=== PATIENT | female | born 1970 | race Caucasian/White ===

== ENCOUNTER 2017-02-25 21:20 | Emergency (ER) | payer BC ==
[~2017-02-25] VITALS: Ht 160 cm; Wt 87.5 kg
[2017-02-25 21:23] VITALS: TEMP 37.4; Ht 160 cm; Wt 87.5 kg
[2017-02-25] MEDS ORDERED: ONDANSETRON INJ 2 MG/ML 2 ML VIAL IV STA (22:15)
[2017-02-25] MEDS ORDERED: MoRPHine SULFATE 10 MG/ML CARP/VIAL IV STA (22:15)
[2017-02-25] MEDS ORDERED: SODIUM CHLORIDE 0.9% 1000ML 1,000 ML IV STA (22:15)
[2017-02-25] MEDS ORDERED: FLUT0.15 NAE (22:20)
[2017-02-25] MEDS ORDERED: NAPR1TAB9 PO (22:20)
[2017-02-25] MEDS ORDERED: ONDA4TAB46 SL (22:20)
[2017-02-25] MEDS ORDERED: OXYCODONE PO (22:20)
[2017-02-25 22:25] LABS: MANUAL MICROSCOPIC REQUIRED? NO; REVIEW REQ? NO; URINE APPEARANCE CLEAR (CLEAR); URINE BILIRUBIN NEG (NEG); URINE COLOR YELLOW; URINE NITRITE NEG (NEG); URINE SPECIFIC GRAVITY 1.009 (1.000-1.030); UROBILINOGEN NEG (NEG); ZZUR CULT IF INDIC CLEAN CATCH NO
[2017-02-25 22:48] LABS: BASO % 0.4 %; BASO ABS # 0.05 K/uL (0-0.2); COMPLETE YES; EOS % 2.5 %; HEMATOCRIT 39.9 % (37-47); IG% 0.4 %; LYMPH % 9.9 %; MEAN CELL VOLUME 87.5 fL (80-100); MEAN CORPUSCULAR HEMOGLOBIN 28.7 pg (25-34); MEAN CORPUSCULAR HGB CONC 32.8 g/dl (32-36); MEAN PLATELET VOLUME 11.2 fL (7.4-10.4); MONO % 8.9 %; NEUT % 77.9 %; PLATELET COUNT 264 K/uL (130-400); RED BLOOD COUNT 4.56 M/uL (4.2-5.4)
[2017-02-25 23:05] LABS: ALT/SGPT 37 U/L (12-78); BLOOD UREA NITROGEN 7 mg/dl (7-18); BUN/CREATININE RATIO 11.3 (10-20); CALCIUM 8.5 mg/dl (8.5-10.1); CARBON DIOXIDE 25 mmol/L (21-32); CHLORIDE 105 mmol/L (98-107); CREATININE 0.64 mg/dl (0.60-1.20); GLUCOSE 94 mg/dl (70-99); POTASSIUM 3.6 mmol/L (3.5-5.1); SODIUM 139 mmol/L (136-145)
[2017-02-25 23:08] LABS: ALKALINE PHOSPHATASE 81 U/L (45-117); AST/SGOT 26 U/L (15-37)
[2017-02-25] MEDS ORDERED: OPTIRAY 320 IV PRN (23:45)
--- NOTE | 2017-02-26 01:14 | EMERGENCY ROOM VISIT NOTE ---
History First contact with patient: 21:32 Chief Complaint: ABDOMINAL PAIN Stated Complaint: SHARP PAIN IN L SIDE,CYSTS,ON L OVARY,NAUSEA,FEVER Nursing Triage Summary: Pt states she has been experiencing left lower abdominal pain. Recently had an ultrasound that showed an ovarian cyst. To see an MD or a surgical consult. History of Present Illness The patient is a 47 year old female who presents to the Emergency Room with complaints of left lower quadrant abdominal pain. The patient states that in May of last year, she develops diverticulitis. She states that on the CT scan, there were also ovarian cysts. She followed up with her primary care provider. She has been on a few more courses of antibiotics for presumed diverticulitis, but has had no further imaging studies. Most recently, she was on ciprofloxacin and Flagyl in January for symptoms. After completing the antibiotics, she had continued pain. She was seen at her primary care provider' s office and had a pelvic ultrasound which showed bilateral endometriomas. She was scheduled with [facility] SENIOR APPLICATIONS ARCHITECT but does not have an appointment until later this month. She states that today, she has been nauseous and has had a low-grade fever. She has been taking Zofran at home and left over oxycodone for her pain. She states the pain is cramping and rates the discomfort a 7/10. She states that her periods have been sporadic for the past few years. She denies urinary symptoms, vomiting or changes in bowel movements. Review of Systems A complete 10 point review of systems was reviewed with the patient with pertinent positives and negatives as per history of present illness. All else were negative. Social History Smoking Status: Never Smoker Drug Use: none Marital Status: Housing Status: lives with family Current/Historical Medications Scheduled Naproxen (Aleve), 440 MG PO PRN UD [Oxycodone], 1 TAB PO PRN UD Scheduled PRN Fluticasone Propionate (Nasal) (Flonase Allergy Relief), 2 SPRAYS JAX DAILY PRN for Nasal Congestion Hydrocodone/Acetaminophen 5MG/325MG (Nilwood 5MG/325MG), 1-2 TABLET PO Q4H PRN for Pain Ondansetron Hcl (Zofran), 4 MG SL Q8 PRN for Nausea Allergies Coded Allergies: Amoxicillin (Verified Allergy, Intermediate, GI upset, 06/13/16) Sulfamethoxazole w/Trimethoprim (Verified Allergy, Intermediate, Redness, rash, 06/13/16) Physical Exam Vital Signs Date Time Temp Pulse Resp B/P (MAP) Pulse Ox O2 Delivery O2 Flow Rate FiO2 02/26/17 03:29 72 16 98/56 97 Room Air 02/26/17 01:32 76 18 115/67 96 Room Air 02/25/17 23:12 86 18 128/86 96 Room Air 02/25/17 21:23 37.4 112 20 162/97 96 Room Air Physical Exam VITALS: Vitals are noted on the nurse's note and reviewed by myself. Vital signs stable. GENERAL: This is a 47-year-old female, in no acute distress, nondiaphoretic, well-developed well-nourished. HEART: Regular rate and rhythm without murmurs gallops or rubs. LUNGS: Clear to auscultation bilaterally without wheezes, rales or rhonchi. ABDOMEN: Positive bowel sounds x 4. Soft, mild tenderness of the left lower quadrant. No guarding or rebound tenderness. NEURO: Patient was alert and oriented to person place and time. Medical Decision & Procedures ER Provider Diagnostic Interpretation: CT ABDOMEN & PELVIS: Hypodense complex structure in the left ovary measures approximately 4.6 x 5.5 cm. Hypodense complex structures in the left ovary measure approximately 4.3 x 4.5 cm and 1.5 x 1.8 cm. The structures likely represent hemorrhagic ovarian cyst versus endometriomas which have slightly increased compared to prior exam on . Small amount of free fluid in the pelvis. Minimal atelectasis at left greater than right lung bases. Diverticulosis without evidence of diverticulitis. Normal appendix. Radiologist: Bety Moya MD US PELVIC/ENDOVAG: Left ovary is enlarged measuring 5.2 x 3.9 x 5.8 second liter. The left ovary has normal color flow with normal arterial Doppler waveforms. There is a complex hypoechoic structure measuring 4.8 x 4.0 x 5.8 cm. On the prior study there was a mostly anechoic structure measuring 3.7 x 4.7 x 3.3 cm. A smaller hypoechoic structure is in left ovary measuring 1.6 x 1.1 x 1.7 cm. The ovarian structures do not demonstrate associated color Doppler flow. Findings may represent endometriomas versus hemorrhagic cyst. The right ovary measures 5.3 x 4.0 x 5.8 cm. There are multiple structures without internal vascularity with the largest measuring 3.5 x 3.1 x 3.2 cm. There is also a simple appearing cyst seen with the right ovary measuring 3.4 x 2.5 x 4.6 and later as well as a probable corpeus luteum. The right ovary demonstrates normal color flow with normal arterial Doppler waveforms. Compared to the prior study, the right ovary has become enlarged and there are more enlarge or masses associated with the right ovary. The complex structures may represent hemorrhagic cyst or endometrioma is. The uterus is retroflexed. There is a small intramural fibroid on the right measuring 3.1 x 1.3 x 2.0 cm. Endometrium measures 9 mm. Small amount of free fluid within the pelvis on the right side. Radiologist: Bety Moya MD Laboratory Results 02/25/17 22:15 Red Blood Count 4.56, Mean Corpuscular Volume 87.5, Mean Corpuscular Hemoglobin 28.7, Mean Corpuscular Hemoglobin Concent 32.8, Mean Platelet Volume 11.2, Neutrophils (%) (Auto) 77.9, Lymphocytes (%) (Auto) 9.9, Monocytes (%) (Auto) 8.9, Eosinophils (%) (Auto) 2.5, Basophils (%) (Auto) 0.4, Neutrophils # (Auto) 10.20, Lymphocytes # (Auto) 1.30, Monocytes # (Auto) 1.17, Eosinophils # (Auto) 0.33, Basophils # (Auto) 0.05 02/25/17 22:15 Test 02/25/17 22:00 02/25/17 22:15 Urine Color YELLOW Urine Appearance CLEAR (CLEAR) Urine pH 6.0 (4.5-7.5) Urine Specific [place] 1.009 (1.000-1.030) Urine Protein NEG (NEG) Urine Glucose (UA) NEG (NEG) Urine Ketones NEG (NEG) Urine Occult Blood 3+ (NEG) Urine Nitrite NEG (NEG) Urine Bilirubin NEG (NEG) Urine Urobilinogen NEG (NEG) Urine Leukocyte Esterase MODERATE (NEG) Urine WBC (Auto) 1-5 /hpf (0-5) Urine RBC (Auto) >30 /hpf (0-4) Urine Hyaline Casts (Auto) 1-5 /lpf (0-5) Urine Epithelial Cells (Auto) 10-20 /lpf (0-5) Urine Bacteria (Auto) NEG (NEG) Urine Test NEG (NEG) White Blood Count 13.10 K/uL (4.8-10.8) Red Blood Count 4.56 M/uL (4.2-5.4) Hemoglobin 13.1 g/dL (12.0-16.0) Hematocrit 39.9 % (37-47) Mean Corpuscular Volume 87.5 fL (80-100) Mean Corpuscular Hemoglobin 28.7 pg (25-34) Mean Corpuscular Hemoglobin Concent 32.8 g/dl (32-36) Platelet Count 264 K/uL (130-400) Mean Platelet Volume 11.2 fL (7.4-10.4) Neutrophils (%) (Auto) 77.9 % Lymphocytes (%) (Auto) 9.9 % Monocytes (%) (Auto) 8.9 % Eosinophils (%) (Auto) 2.5 % Basophils (%) (Auto) 0.4 % Neutrophils # (Auto) 10.20 K/uL (1.4-6.5) Lymphocytes # (Auto) 1.30 K/uL (1.2-3.4) Monocytes # (Auto) 1.17 K/uL (0.11-0.59) Eosinophils # (Auto) 0.33 K/uL (0-0.5) Basophils # (Auto) 0.05 K/uL (0-0.2) RDW Standard Deviation 43.9 fL (36.4-46.3) RDW Coefficient of Variation 13.7 % (11.5-14.5) Immature Granulocyte % (Auto) 0.4 % Immature Granulocyte # (Auto) 0.05 K/uL (0.00-0.02) Anion Gap 9.0 mmol/L (3-11) Est Creatinine Clear Calc Drug Dose 116.4 ml/min Estimated GFR () 124.9 Estimated GFR (Non- 107.8 BUN/Creatinine Ratio 11.3 (10-20) Calcium Level 8.5 mg/dl (8.5-10.1) Total Bilirubin 0.3 mg/dl (0.2-1) Direct Bilirubin < 0.1 mg/dl (0-0.2) Aspartate Amino Transf (AST/SGOT) 26 U/L (15-37) Alanine Aminotransferase (ALT/SGPT) 37 U/L (12-78) Alkaline Phosphatase 81 U/L (45-117) Total Protein 7.1 gm/dl (6.4-8.2) Albumin 3.6 gm/dl (3.4-5.0) Lipase 99 U/L (73-393) Medications Administered Medications (Trade) Dose Ordered Sig/Shivani Route Start Time Stop Time Status Last Admin Dose Admin Sodium Chloride 1,000 ml @ 999 mls/hr Q1H1M STAT IV 02/25/17 22:15 02/25/17 23:15 DC 02/25/17 22:32 999 MLS/HR Ondansetron HCl (Zofran Inj) 4 mg NOW STAT IV 02/25/17 22:15 02/25/17 22:16 DC 02/25/17 22:32 4 MG Morphine Sulfate (MoRPHine SULFATE INJ) 6 mg NOW STAT IV 02/25/17 22:15 02/25/17 22:16 DC 02/25/17 22:32 6 MG Ketorolac Tromethamine (Toradol Inj) 30 mg NOW STAT IV 02/26/17 01:42 02/26/17 01:43 DC 02/26/17 01:53 30 MG Morphine Sulfate (MoRPHine SULFATE INJ) 4 mg NOW STAT IV 02/26/17 01:42 02/26/17 01:43 DC 02/26/17 01:53 4 MG Acetaminophen/ Hydrocodone Bitart (Nilwood 5/325mg Home Pack) 1 homepack UD ONCE PO 02/26/17 03:30 02/26/17 03:32 DC 02/26/17 03:29 1 HOMEPACK ED Course The patient was evaluated as above. Labs were drawn and IV access was obtained. Patient was medicated with 1 L normal saline solution, 4 mg Zofran and 6 mg morphine IV. Imaging studies were performed and read by stat rad as above. Patient was reevaluated and had continued pain. She was given 30 mg Toradol IV and an additional 4 mg morphine IV. Patient was reevaluated and felt much better. Findings were discussed. The patient was discussed with case management. They will call SENIOR APPLICATIONS ARCHITECT tomorrow to attempt to make an earlier appointment for the patient. Discharge instructions were reviewed with the patient. The patient verbalized understanding of my assessment and treatment plan and was discharged home in good condition. Medical Decision Differential diagnosis includes ovarian cyst, ovarian torsion, urinary tract infection, diverticulitis, perforation, abscess, among others. The patient is a 47-year-old female who presents today complaining of persistent pelvic/left lower quadrant pain. Patient did have a bout of diverticulitis late last year and has been treated multiple times for recurrent symptoms. Additionally, the patient is scheduled to follow-up with SENIOR APPLICATIONS ARCHITECT regarding bilateral ovarian cyst/endometriomas. The patient has had persistent pain and has not had much relief at home. For this reason, both CT and ultrasound were ordered and read by stat rad. These did not show any evidence of diverticulitis, but did show enlarging ovarian cyst/endometriosis. Blood flow is seen to both ovaries and I do not suspect torsion. Labs were unremarkable. Patient will be given pain medication and case management will attempt to make her an earlier appointment with SENIOR APPLICATIONS ARCHITECT. Conservative measures were discussed with the patient. I had a lengthy discussion regarding the findings today and the treatment plan. She verbalized understanding. Based on the patient's presentation and work up, I feel the patient is stable for outpatient treatment. The patient was educated to return to the emergency department for any worsening of their current condition or new/concerning symptoms. She will follow up with her PCP and SENIOR APPLICATIONS ARCHITECT. Medication reconciliation: I attest that I have personally reviewed the patient 's current medication list. Blood pressure screening: Patient was found to have normal blood pressure on screening and does not require follow-up. [place] Drug Monitoring Program Search Results: patient reviewed within database, no issues identified Impression Primary Impression: Bilateral ovarian cysts Departure Information Dispostion Home / Self-Care Condition GOOD Prescriptions Hydrocodone/Acetaminophen 5MG/325MG (Nilwood 5MG/325MG) Tab 1-2 TABLET PO Q4H Y for Pain, #15 TAB For Initial Treatment Prov: Yaquelin Iniguez .STALIN 02/26/17 Referrals Diana Ayala D.O. (PCP) Patient Instructions My [facility] Additional Instructions You have been treated in the Emergency Department your Abdominal Pain. Laboratory results and imaging studies have ruled out any emergent causes for your abdominal pain which would warrant admission or surgery. You have been prescribed Nilwood to be used for pain control. This is a narcotic medication. You cannot drive or consume alcohol while on this medicine. This medicine should only be used for pain that cannot be controlled with over-the- counter pain medicines. For pain control, you can use the following riax-igz-pdkojli medicines (if >12 yo): - Regular strength (325mg/tab) Tylenol (acetaminophen) 2 tabs every 4-6 hours as needed. Do not exceed 12 tablets in a 24 hour period. Avoid taking more than 4 grams (4000 mg) of Tylenol per day. This includes any other sources of acetaminophen you may take on a regular basis. - Regular strength (200 mg/tab) Advil (ibuprofen) 1-2 tabs every 4-6 hours as needed. Do not exceed a dose of 3200 mg per day. Drink plenty of water and stay well hydrated. Case management will call you tomorrow regarding a follow-up appointment with OB /CASH MANAGEMENT CLERK. Return to the emergency department if your symptoms persist despite treatment plan outlined above or if the following symptoms occur: Fevers, vomiting, worsening pain or any other new/concerning symptoms.
[2017-02-26] MEDS ORDERED: KETOROLAC TROMETHAMINE 30 MG/ML VIAL IV STA (01:42)
[2017-02-26] MEDS ORDERED: MoRPHine SULFATE 4 MG/ML 1 ML CARP\\VIAL IV STA (01:42)
[2017-02-26] MEDS ORDERED: HYDR-5688 PO (03:23)
[2017-02-26 03:29] VITALS: BP 98/56; PULSE 72; O2SAT 97
[2017-02-26] MEDS ORDERED: NORCO 5/325MG HOME PACK PO ONE (03:30)
--- NOTE | 2017-02-26 07:23 | DIAGNOSTIC IMAGING REPORT ---
CT OF THE ABDOMEN AND PELVIS WITH CONTRAST CLINICAL HISTORY: Left lower quadrant pain. History of endometriomas. COMPARISON STUDY: CT of the abdomen and pelvis June 13, 2016 and pelvic ultrasound June 13, 2016. TECHNIQUE: Following IV administration of 116 mL of Optiray-320, axial images of the abdomen and pelvis were obtained from the lung bases to the proximal femurs. Images were reviewed in the axial, sagittal, and coronal planes. IV contrast was administered without complication. CT DOSE: 826.74 mGy.cm FINDINGS: The liver, spleen, adrenal glands, kidneys and pancreas are normal. There is no evidence for a bowel obstruction. There is colonic diverticulosis without evidence for acute diverticulitis. A small amount of fluid is noted within the pelvis. The appendix is normal. There is no hydronephrosis. No biliary or pancreatic ductal dilatation is present. Note is made of a 5.1 cm intermediate attenuation left adnexal lesion which has increased in size and density since exam of June 13, 2016. There are multiple intermediate attenuation right ovarian lesions which measure up to 4 cm. These have increased in size since prior exam. There are numerous smaller bilateral ovarian lesions. No suspicious osseous lesions are present. A small amount of fluid within the pelvis is noted. IMPRESSION: 1. Increase in size and attenuation of multiple bilateral intermediate attenuation ovarian lesions since exam of June 13, 2016. These could reflect endometriomas or hemorrhagic cysts. Cystic neoplasms are considered less likely but are within the differential and sonographic follow-up is recommended. 2. Small amount of fluid within the pelvis. 3. Colonic diverticulosis without evidence for acute diverticulitis. Electronically signed by: Rashid Villafuerte M.D. 02/26/2017 7:22 AM Dictated Date/Time: 02/26/2017 7:14 AM
--- NOTE | 2017-02-26 07:55 | DIAGNOSTIC IMAGING REPORT ---
PELVIC ULTRASOUND, TRANSABDOMINAL AND TRANSVAGINAL CLINICAL HISTORY: 47-year-old female with left lower quadrant pain and history of diverticulitis, low-grade fever, history of endometriosis with surgical consult on 03/05/2017. Last menstrual period 02/24/2017. TECHNIQUE: Real-time grayscale and color and spectral Doppler ultrasound imaging of the pelvis was performed using transabdominal and transvaginal approaches. COMPARISON: CT from 02/25/2017 and ultrasound from 06/13/2016. FINDINGS: Uterus: Anteverted and retroflexed. The uterus measures 11.6 x 6.1 x 5.8 cm. Endometrium measures 8 mm. Right ovary: Right ovary expanded by multiple masses. The first mass is homogeneously hyperechoic and avascular mass, measuring 3.5 x 3.1 x 3.2 cm. A second homogeneously hypoechoic, avascular mass within measures 2.2 x 2.6 x 2.5 cm. There is also a 3.4 x 2.5 x 4.6 cm anechoic right ovarian cyst. The right ovary overall measures 5.3 x 4.0 x 5.8 cm. The residual peripheral right ovarian parenchyma demonstrates normal color Doppler flow and arterial and spectral Doppler waveforms. Left ovary: Expanded by multiple masses. The first mass is heterogeneously hypoechoic and avascular mass replacing much of the normal ovarian parenchyma. This mass measures 4.8 x 4.0 x 5.8 cm. A second smaller similar mass measures 1.6 x 1.1 x 1.7 cm. The left ovary overall measures 5.2 x 3.9 x 5.8 cm. Normal color Doppler flow noted within the residual peripheral ovarian parenchyma as well as normal arterial and venous waveforms on spectral Doppler. Other: No free fluid. IMPRESSION: 1. No evidence of ovarian torsion. 2. Bilateral ovaries with multiple avascular lesions, which are nonspecific in their appearance and could be compatible with endometriomas. The largest mass measures up to 5.8 cm. These would be better evaluated with contrast-enhanced MR of the pelvis. Surgical consultation is already scheduled. 3. 4.6 cm right ovarian cyst, which is almost certainly benign and does not require follow-up per the Society of radiologists in ultrasound consensus statement. Electronically signed by: Gianni Villegas 02/26/2017 7:54 AM Dictated Date/Time: 02/26/2017 7:43 AM
[2017-03-07] MEDS ORDERED: HYDR-5688 PO (11:12)
== END 2017-02-26 03:30 | disposition home or self-care (01) ==
LOC: C.EDB 21:22 → C.EDA 02-26 03:30
DX: N83.201 Unspecified ovarian cyst, right side (principal); N83.202 Unspecified ovarian cyst, left side

== ENCOUNTER 2017-03-12 08:05 | Day surgery (SDC) | payer BC ==
[2017-03-06 10:49] VITALS: Ht 160 cm; Wt 84.5 kg
[~2017-03-12] VITALS: Ht 160 cm; Wt 84.5 kg
[~2017-03-12 08:05] MED LIST: ACETAMINOPHEN 1000 MG/100 ML IV IV ONE; FLUT0.15 NAE; HYDR-5688 PO; LACTATED RINGER'S 1000ML 1,000 ML IV SCH; NAPR1TAB9 PO; ONDA4TAB46 SL
[2017-03-12] MEDS ORDERED: ROCURONIUM BROMIDE 10 MG/ML 5 ML VIAL ONE (08:20)
[2017-03-12] MEDS ORDERED: PROPOFOL IV EMULSION 10 MG/ML 20 ML VIAL IV ONE (08:20)
[2017-03-12] MEDS ORDERED: LIDOCAINE HCL 2% 2 ML VIAL (20MG/ML) ONE (08:20)
[2017-03-12] MEDS ORDERED: DEXAMETHASONE SOD INJ 4 MG/ML VIAL ONE (08:20)
[2017-03-12] MEDS ORDERED: MIDAZOLAM HCL 1 MG/ML 2ML VIAL ONE (08:20)
[2017-03-12] MEDS ORDERED: ONDANSETRON INJ 2 MG/ML 2 ML VIAL ONE (08:20)
[2017-03-12] MEDS ORDERED: GLYCOPYRROLATE INJ 0.2 MG/ML VIAL ONE (08:20)
[2017-03-12] MEDS ORDERED: NEOSTIGMINE METHYLSULFATE 5 MG/5 ML SYR ONE (08:20)
[2017-03-12] MEDS ORDERED: FENTANYL CITRATE INJ 50 MCG/1 ML 2 ML VIAL ONE ×3 (08:20→11:44)
[2017-03-12 08:34] VITALS: BP 126/80; PULSE 70; TEMP 37; O2SAT 98
--- NOTE | 2017-03-12 09:11 | History & Physical Bridge Note ---
H&P Re-Evaluation Bridge Note: I have examined the patient, reviewed the History & Physical and in the interval since the performance of the History & Physical I have noted the following changes of clinical significance: To clarify discrepancy between consent and H&P, surgery planned today is LEFT SALPINGO-OOPHORECTOMY. Concurrent removal of the tube is an anticipated part of the procedure to remove the abnormal ovary.
[2017-03-12] MEDS ORDERED: EpHEDrine SULFATE INJ 50 MG/ML AMP IV PRN (09:30)
[2017-03-12] MEDS ORDERED: ATROPINE SULFATE 0.1 MG/ML 5ML SYR IV PRN (09:30)
[2017-03-12] MEDS ORDERED: ONDANSETRON INJ 2 MG/ML 2 ML VIAL IV PRN ×2 (09:30→12:30)
[2017-03-12] MEDS ORDERED: METHYLENE BLUE 0.5% 10 ML VIAL ONE (10:19)
[2017-03-12] MEDS ORDERED: SODIUM CHLORIDE 0.9% 1000ML 1,000 ML IV SCH (12:20)
--- NOTE | 2017-03-12 12:20 | [facility] Post Operative Brief Note ---
Immediate Operative Summary Operative Date Mar 12, 2017. Pre-Operative Diagnosis Bilateral ovarian cysts. Post-Operative Diagnosis Same as preop. Procedure(s) Performed Laparoscopic left salpingo-oophorectomy, lysis of adhesions with use of Davinci , cystoscopy. Surgeon Dr. Reid Herbologist Surgeon(s) Dr. Montanez Estimated Blood Loss 40 ml Findings Severe adhesive disease of the pelvis including dense / chronic adhesions and filmy / acute adhesions. Enlarged smooth R ovary, enlarged and edematous / erythematous L ovary with chocolate-syrup filling, normal shape of fundus. Specimens A: Left tube and ovary. Complication(s) None Disposition Recovery Room / PACU
[2017-03-12] MEDS: FENTANYL CITRATE INJ 50 MCG/1 ML 2 ML VIAL IV PRN ×4 (12:27→12:45)
[2017-03-12] MEDS ORDERED: IBUPROFEN 600 MG TAB PO PRN (12:30)
[2017-03-12] MEDS ORDERED: KETOROLAC TROMETHAMINE 30 MG/ML VIAL IV. PRN (12:30)
[2017-03-12] MEDS ORDERED: MoRPHine SULFATE 4 MG/ML 1 ML CARP\\VIAL IV PRN (12:30)
[2017-03-12] MEDS ORDERED: PROMETHAZINE HCL INJ 25 MG in SODIUM CHLORIDE 0.9% 50ML 50 ML IV PRN (12:30)
[2017-03-12] MEDS ORDERED: OXYCODONE/ACETAMINOPHEN 5-325 TAB PO PRN ×2 (12:30)
[2017-03-12] MEDS ORDERED: MoRPHine SULFATE 2 MG/ML CARP IV PRN (12:30)
[2017-03-12] MEDS: HYDROmorphone INJ 1 MG/ML SYR IV PRN ×4 (12:51→13:06)
--- NOTE | 2017-03-12 13:12 | Anesthesiology Progress Note ---
Anesthesia Post Op Note Date & Time Mar 12, 2017 at 13:12 Vital Signs Pain Intensity: 5.0 Vital Signs Past 12 Hours Date Time Temp Pulse Resp B/P (MAP) Pulse Ox O2 Delivery O2 Flow Rate FiO2 03/12/17 13:00 60 15 100/72 95 Nasal Cannula 2 03/12/17 12:50 92 17 114/72 89 Room Air 03/12/17 12:40 67 12 131/86 90 Room Air 03/12/17 12:30 70 21 118/80 94 Room Air 03/12/17 12:20 77 21 122/88 100 Mask 10 03/12/17 12:10 81 21 129/84 98 Mask 10 03/12/17 12:04 36.4 85 15 123/81 98 Mask 10 03/12/17 08:34 37 70 18 126/80 (95) 98 Room Air Notes Mental Status: alert / awake / arousable, participated in evaluation Pt Amnestic to Procedure: Yes Nausea / Vomiting: adequately controlled Pain: adequately controlled Airway Patency, RR, SpO2: stable & adequate BP & HR: stable & adequate Hydration State: stable & adequate Anesthetic Complications: no major complications apparent
[2017-03-12 13:30] VITALS: BP 122/62; PULSE 103; TEMP 36.9; O2SAT 95
--- NOTE | 2017-03-12 13:41 | OPERATIVE REPORT ---
DATE OF OPERATION: 03/12/2017 PREOPERATIVE DIAGNOSIS: Bilateral ovarian cysts with left lower quadrant pain. POSTOPERATIVE DIAGNOSES: Same plus endometriosis and significant pelvic adhesive disease. PROCEDURES: Laparoscopic LSO with lysis of adhesions using Da Hayley assist and cystoscopy. SURGEON: Dr. Mone Reid. PET CARETAKER: Lisseth. ESTIMATED BLOOD LOSS: 40 mL. FINDINGS: Severe intra-abdominal adhesive disease of the pelvis including dense chronic adhesions as well as filmy acute adhesions, smooth enlarged right ovary and enlarged edematous and erythematous left ovary with chocolate syrup type filling and normal shape of uterine fundus. SPECIMENS: Left tube and ovary. COMPLICATIONS: None. DISPOSITION: Stable to recovery room. DESCRIPTION OF PROCEDURE: Hope was brought to the operating room and placed on the table in the dorsal lithotomy position with Yellofin stirrups, prepped and draped in standard sterile fashion and a hard time-out was taken prior to beginning a Garcia and a Tovar's cannula manipulator were placed. Attention was then turned to the abdomen, where an umbilical entry was made in an optical manner. The patient's abdomen was insufflated and she was placed in Trendelenburg. Under direct visualization, right and left lower quadrant ports were placed. Using a blunt manipulator, an attempt was made to visualize the pelvic organs; however, it was immediately evident that the left ovary, which was grossly enlarged was also densely adherent to the uterine fundus and the pelvic cul-de-sac. The right ovary was nonvisualized because small bowel was adhesed over the entire right portion of the pelvis and there were also a combination of dense and filmy adhesions holding the sigmoid colon over and attached to the left adnexa. It was not felt that this case could be approached with a straight stick as planned. Therefore, we considered our options and elected to convert to robotic assisted procedure. Dr. Montanez was in the operating room to assist in a changeover to robotic trocars and repositioning of the patient while I went to discuss this change of plans with the patient's . He was in agreement with changing to a robotic approach and an attempt to maintain a minimally invasive surgery. I then returned to the operating room. We were able to change to robotic trocars, position the patient back in steep Trendelenburg and then docked the robot. Surgery then began by dissecting first the filmy adhesions to free the sigmoid colon from the left adnexal structures. This was done without complication and the IP ligament was able to be skeletonized and easily visualized. Dealing with the dense adhesions between the medial portion of the left ovary and the uterine fundus as well as the posterior cul-de-sac was the next item on the to do list. This was then gently peeled apart using a combination of sharp and blunt dissection. Eventually, the fimbriae were revealed to be in this pocket between the left ovary and uterine fundus and the tube was able to be gradually approached here as well. During this dissection, spillage of a large amount of chocolate type fluid was noted confirming the suspected diagnosis of endometrioma within this ovary. An transition assistant port was placed in the left upper quadrant at the previously marked site to allow introduction of suction irrigation, which was used to evacuate the cyst and to clean the chocolate fluid, which had already spilled to allow further visualization and continued dissection. Once the left ovary had been completely freed from its adhesions to the uterine fundus, the cul-de-sac and pelvic sidewall as well as the sigmoid colon and the IP ligament was clearly visible. A window was created in the peritoneum to isolate the IP ligament and the bipolar grasper and bipolar energy was used to ligate and then monopolar was used to divide the IP ligament. The ovary was then freed up to the level of the uteroovarian ligament, which was ligated and divided along with the stump of the fallopian tube being ligated and divided in a single specimen of tissue consisting of the left ovary and fallopian tube was rested in the anterior cul-de-sac to a retrieval. Gentle blunt dissection was used to peel away some of the bowel adhesion on the right side of the pelvis in order to allow visualization of the right ovary. Once the right ovary was seen to be smooth and enlarged, but not more than had been anticipated and to have a distinctly benign appearance, dissection was felt to be completed. At this time, the robot was undocked and we returned to a straight stick approach, where a grasper was used to place the tissue specimen into an EndoCatch bag, which was then retrieved through the umbilicus. The ovary needed to be suctioned inside the containing EndoCatch bag in order to be retrieved through the umbilical port and the ovary and its respective pieces were sent to pathology for full examination. Again at this time, the suspicion is that this is a benign endometrioma of the left ovary and we will await final pathologic diagnosis. Once the specimen had been fully retrieved, the patient was placed in reverse Trendelenburg and laparoscopic suction irrigation was used to completely clear all remaining chocolate cyst fluid and debris from the abdomen. All instruments were then removed. Methylene blue dye was administered and cystoscopy was then undertaken with special attention given to the left ureteral orifice, where a significant amount of dissection at the pelvic sidewall had been undertaken. Of note, a strong jet of blue stained urine was seen almost immediately from the left ureteral orifice and several additional jets followed. As reassured, the bladder was drained and attention was turned to closure of the abdominal ports, which included a UR-6 at the fascial layer in both of the 12-mm sites at the umbilicus and left upper quadrant and Monocryl and Dermabond at all sites. The patient was then transferred in stable condition to the PACU having tolerated her procedure well. I then met with her and showed him photographs and explained the course of the procedure and anticipate meeting with both the patient and her before she leaves her home today. I attest to the content of the Intraoperative Record and any orders documented therein. Any exceptions are noted below. ABIGAIL
[2017-03-12 14:00] VITALS: BP 119/72; PULSE 90; TEMP 36.9; O2SAT 95
[2017-03-12 14:30] VITALS: BP_SYST 119; BP_SYST 95; BP_DIAS 72; BP_DIAS 75; PULSE 88; TEMP 36.9; O2SAT 98
[2017-03-12 15:00] VITALS: BP 111/75; PULSE 89; TEMP 37; O2SAT 93
--- NOTE | 2017-03-12 15:29 | Discharge Instructions ---
Discharge Instructions Date of Service Mar 12, 2017. Visit Reason for Visit: Bilateral Ovarian Cysts Discharge Discharge Diagnosis / Problem: Left salpingo-oophorectomy Discharge Goals Goal(s): Specific goals Activity Recommendations Activity Limitations: per Instructions/Follow-up section Anesthesia . Post Anesthesia Instructions: If you have had General Anesthesia or IV Sedation: * Do not drive today. * Resume driving when surgeon permits. * Do not make important decisions or sign legal documents today. * Call surgeon for: 1. Temperature elevations greater than 101 degrees F. 2. Uncontrollable pain. 3. Excessive bleeding. 4. Persistent nausea and vomiting. 5. Medication intolerance (nausea, vomiting or rash). * For nausea and vomiting use only clear liquids such as: tea, soda, bouillon until nausea subsides, then gradually increase diet as tolerated. * If you have any concerns or questions, call your surgeon's office. If physician is unavailable and it is an emergency, call 911 or go to the nearest emergency room. . Instructions / Follow-Up Instructions / Follow-Up ACTIVITY RECOMMENDATIONS: * Rest the first 2-3 days. You should be back to your normal activity levels by day 3. * No heavy lifting for 2 weeks. * No intercourse, tampons or douching for 1-2 weeks. * You may shower the next day. * Do not drive anytime that you are taking narcotic pain medicines. RETURN TO SCHOOL/WORK: * May return to school or work after 2-3 days. DIET: Nausea may occur in the immediate post-operative period. If so, take clear liquids such as tea, bouillon, apple juice until all nausea has subsided, then resume usual diet. MEDICATIONS: Resume previous medications unless instructed otherwise by your surgeon. Ibuprofen 200mg 2-3 tablets every 4-6 hours as needed -- OR -- Aleve 2 tablets every 8-12 hours as needed for post-operative discomfort Medications are over the counter. Tylenol may be used if above medications are contraindicated or not preferred. Medication should be taken with food or milk. Do not take on an empty stomach. SPECIAL CARE INSTRUCTIONS: * Check temperature twice daily for one week. report any elevation over 101 degrees. * You may experience some vagina spotting and/or bleeding. This is normal for 1 -2 weeks and should not be heavier than a normal period. If it is unusual in amount, call your physician. * Post-operative discomfort may consist of a sore throat, a "bloated" feeling and pain in the shoulders. these are normal symptoms, which usually only last for 2-3 days. Diet Recommendations Recommended Home Diet: resume previous diet Procedures Procedures Performed: Laparoscopic left salpingo-oophorectomy, lysis of adhesions with use of Davinci , cystoscopy. Pending Studies Studies pending at discharge: no Medical Emergencies . Who to Call and When: Medical Emergencies: If at any time you feel your situation is an emergency, please call 911 immediately. . Non-Emergent Contact Non-Emergency issues call your: Primary Care Provider . . "Provider Documentation" section prepared by Mone Reid. . [place] Drug Monitoring Program Search Results: patient reviewed within database, no issues identified
[2017-03-12 16:15] VITALS: BP 115/77; PULSE 88; TEMP 37; O2SAT 95
== END 2017-03-12 16:30 | disposition home or self-care (01) ==
LOC: C.ACU 08:05
PROVIDERS: ATTEND Obstetrics & Gynecology
DX: N80.1 Endometriosis of ovary (principal); N83.202 Unspecified ovarian cyst, left side; N83.201 Unspecified ovarian cyst, right side; K57.32 Diverticulitis of large intestine without perforation or abscess without bleeding; Z90.89 Acquired absence of other organs; Z80.3 Family history of malignant neoplasm of breast; K21.9 Gastro-esophageal reflux disease without esophagitis; E66.9 Obesity, unspecified; J45.909 Unspecified asthma, uncomplicated